=== PATIENT | male | born 1985 | race American Indian/Alaskan Native ===

== ENCOUNTER 2022-02-14 16:34 | Emergency (ER) | payer OTHER, BC ==
[2022-02-14 17:18] VITALS: BP 147/82
[2022-02-14] MEDS ORDERED: HYDROcodone/ACETAMINOPHEN 5-325 MG TAB PO STA (22:26)
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
== END 2022-02-14 23:19 | disposition home or self-care (01) ==
LOC: ED 16:34
DX: M79.18 Myalgia, other site (principal); V87.7XXA Person injured in collision between other specified motor vehicles (traffic), initial encounter; Y93.89 Activity, other specified; Y92.488 Other paved roadways as the place of occurrence of the external cause; Y99.8 Other external cause status
CPT/HCPCS: 99282